=== PATIENT | male | born 1965 | race American Indian/Alaskan Native ===

== ENCOUNTER 2021-08-24 14:31 | Outpatient (CLI) | payer MEDICAID ==
--- NOTE | 2021-08-24 23:53 | XRay Report ---
RIGHT ELBOW 3 VIEW(S) INDICATION / CLINICAL INFORMATION: PAIN IN RIGHT ELBOW COMPARISON: None available. FINDINGS: BONES / JOINT(S): No acute fracture or subluxation. Well-corticated ossific density adjacent to the m edial epicondyle likely represents sequela of old injury. No joint effusion. SOFT TISSUES: There is significant soft tissue swelling overlying the olecranon process characteristi c for olecranon bursitis. ADDITIONAL FINDINGS: None. IMPRESSION: 1. Olecranon bursitis Signer Name: Cameron Calix MD Signed: 08/24/2021 3:29 PM Workstation Name: [id number]
== END 2021-08-24 14:32 | disposition home or self-care (01) ==
LOC: XRAY 14:31
PROVIDERS: ATTEND Orthopaedic Surgery
DX: M70.21 Olecranon bursitis, right elbow (principal); R22.31 Localized swelling, mass and lump, right upper limb